=== PATIENT | female | born 1930 | race Caucasian/White ===

== ENCOUNTER 2017-10-05 20:15 | Emergency (ER) | payer MEDICARE, BC ==
[2017-10-05] MEDS: IPRATRPIUM/ALBUTEROL 0.5/2.5MG 3 ML NEBU. NEB (21:19)
[2017-10-05] MEDS: predniSONE 20 MG TABLET PO (21:29)
[2017-10-06 07:30] LABS: NEGATIVE OBC STREP NEG; POSITIVE OBC STREP POS
== END 2017-10-05 22:55 | disposition home or self-care (01) ==
LOC: ER 22:55
DX: S60.561A Insect bite (nonvenomous) of right hand, initial encounter (principal); S90.861A Insect bite (nonvenomous), right foot, initial encounter; J20.9 Acute bronchitis, unspecified; J02.8 Acute pharyngitis due to other specified organisms; B97.89 Other viral agents as the cause of diseases classified elsewhere; I48.91 Unspecified atrial fibrillation; I10 Essential (primary) hypertension; Z88.0 Allergy status to penicillin; Z88.6 Allergy status to analgesic agent; Z88.5 Allergy status to narcotic agent; W57.XXXA Bitten or stung by nonvenomous insect and other nonvenomous arthropods, initial encounter; Y93.89 Activity, other specified; Y99.8 Other external cause status; Y92.89 Other specified places as the place of occurrence of the external cause
CPT/HCPCS: 71046; 87070; 87880; 94640; 99285-25; J7512; J7620